=== PATIENT | female | born 1995 | race Two or more races ===

== ENCOUNTER 2018-03-01 00:05 | Emergency (ER) | payer SELFPAY ==
[~2018-03-01] VITALS: Ht 160 cm; Wt 92.0 kg
[2018-03-01 00:08] VITALS: BP 124/87
[2018-03-01] MEDS ORDERED: MAALOX/HYOSCYAMINE/LIDOCAINE 45 ML BTL ONE (00:46)
[2018-03-01] MEDS ORDERED: FAMOTIDINE 20 MG/2 ML ONE (00:54)
[2018-03-01] MEDS ORDERED: ONDANSETRON ODT 4 MG ONE (00:54)
[2018-03-01 00:59] LABS: CULTURE INDICATED? YES; MICROSCOPIC INDICATED
[2018-03-01 00:59] LABS: BASOPHILS # (AUTO) 0.04 x10^3/uL (0-0.1); BASOPHILS % (AUTO) 0 % (0-1); EOSINOPHILS # (AUTO) 0.16 x10^3/uL (0-0.4); EOSINOPHILS % (AUTO) 2 % (1-7); LYMPHOCYTES # (AUTO) 2.13 x10^3/uL (1-3.4); LYMPHOCYTES % (AUTO) 24 % (22-44); MD NO; MEAN CORPUSCULAR HGB CONC 34.6 g/dL (32.4-35.8); MEAN PLATELET VOLUME 7.2 fL (7.4-10.4); MONOCYTES # (AUTO) 0.79 x10^3/uL (0.2-0.8); MONOCYTES % (AUTO) 9 % (2-9); NEUTROPHILS # (AUTO) 5.88 x10^3/uL (1.8-6.8); NEUTROPHILS % (AUTO) 65 % (42-75); PLATELET COUNT 366 x10^3/uL (130-400); RED BLOOD COUNT 4.88 x10^6/uL (3.82-5.3); RED CELL DISTRIBUTION WIDTH 13.3 % (9.6-15.2)
[2018-03-01] MEDS ORDERED: MAALOX/HYOSCYAMINE/LIDOCAINE 45 ML BTL PO ONE (01:00)
[2018-03-01] MEDS ORDERED: ONDANSETRON ODT 4 MG PO ONE (01:00)
[2018-03-01] MEDS ORDERED: FAMOTIDINE 20 MG TABLET PO ONE (01:00)
[2018-03-01 01:09] LABS: ALANINE AMINOTRANSFERASE 24 U/L (12-78); ALBUMIN 3.5 g/dL (3.4-5.0); ANION GAP 8 mmol/L (5-15); CALCIUM 8.7 mg/dL (8.5-10.1); CHLORIDE 105 mmol/L (98-107); CREATININE 0.71 mg/dL (0.55-1.02)
[2018-03-01 01:13] LABS: ALKALINE PHOSPHATASE 74 U/L (45-117); BILIRUBIN,TOTAL 0.7 mg/dL (0.2-1.0); TOTAL PROTEIN 7.6 g/dL (6.4-8.2)
[2018-03-01] MEDS ORDERED: FAMOTIDINE 20 MG/2 ML IVPush ONE (01:30)
== END 2018-03-01 02:15 | disposition home or self-care (01) ==
LOC: ED 02:00
DX: R10.13 Epigastric pain (principal); R10.33 Periumbilical pain; R11.2 Nausea with vomiting, unspecified; R19.7 Diarrhea, unspecified
CPT/HCPCS: 36415; 80053; 81001; 83690; 84703; 85025; 87086; 96374; 99284; Q0162; S0028

== ENCOUNTER 2018-11-15 18:24 | Emergency (ER) | payer OTHER ==
[~2018-11-15] VITALS: Ht 165.1 cm; Wt 95.0 kg
[2018-11-15 18:53] VITALS: BP 136/82
--- NOTE | 2018-11-15 19:03 | NUR ---
BACK PAIN SINCE 8 AM, PT STATES DRAGGING BAG OF LAUNDRY AND SUDDEN BACK PAIN. CALL LIGHT RUTHIE HENDRICKS, SIDERAILS UP X2
[2018-11-15] MEDS ORDERED: METHOCARBAMOL 750 MG TABLET ONE (19:16)
[2018-11-15] MEDS ORDERED: KETOROLAC 30 MG/1 ML ONE (19:16)
--- NOTE | 2018-11-15 19:24 | NUR ---
PT MEDICATED PER MAR, PT TO XRAY
[2018-11-15] MEDS ORDERED: METHOCARBAMOL 750 MG TABLET PO ONE (19:30)
[2018-11-15] MEDS ORDERED: KETOROLAC 30 MG/1 ML IM ONE (19:30)
== END 2018-11-15 20:07 | disposition home or self-care (01) ==
LOC: ED 20:01
DX: S39.012A Strain of muscle, fascia and tendon of lower back, initial encounter (principal); X58.XXXA Exposure to other specified factors, initial encounter; Y93.89 Activity, other specified; Y92.89 Other specified places as the place of occurrence of the external cause; Y99.8 Other external cause status
CPT/HCPCS: 72110; 96372; 99283; J1885

== ENCOUNTER 2020-05-15 06:35 | Emergency (ER) | payer OTHER ==
[~2020-05-15] VITALS: Ht 160 cm; Wt 98.8 kg
[2020-05-15 06:39] VITALS: BP 134/87
[2020-05-15] MEDS ORDERED: LIDOCAINE-MPF 1%, 5ML ONE (06:52)
[2020-05-15] MEDS ORDERED: LIDOCAINE-MPF 1%, 5ML INFIL ONE (07:00)
[2020-05-15] MEDS ORDERED: DIPH,PERTUSS(ACELL),TET VAC/PF 0.5 ML IM-VACC ONE ×2 (07:00→07:10)
[2020-05-15] MEDS ORDERED: NEOSPORIN OINT. PKT 1 PACKET ONE (07:36)
--- NOTE | 2020-05-15 08:08 | NUR ---
ASSUMED CARE FOR DC ONLY Patient/Caregiver given discharge instructions and they have confirmed that they understand the instructions. Patient ambulatory with steady gait.
== END 2020-05-15 08:10 | disposition home or self-care (01) ==
LOC: ED 07:11
DX: S81.812A Laceration without foreign body, left lower leg, initial encounter (principal); W45.8XXA Other foreign body or object entering through skin, initial encounter; Y93.89 Activity, other specified; Y92.098 Other place in other non-institutional residence as the place of occurrence of the external cause; Y99.8 Other external cause status
CPT/HCPCS: 12031; 90471; 90715; 99284